=== PATIENT | male | born 1990 | race African-American/Black ===

== ENCOUNTER 2017-01-09 10:31 | Emergency (ER) | payer MEDICAID, OTHER ==
[~2017-01-09] VITALS: Ht 177.8 cm; Wt 100.0 kg
[~2017-01-09 10:31] MED LIST: BACL10TA PO; DICL75 PO
[2017-01-09 10:33] VITALS: BP 126/59; PULSE 52; RESP 15; TEMP 98.7; O2SAT 98
--- NOTE | 2017-01-09 11:17 | PD ---
HPI Chief Complaint: Dizziness Time Seen by Provider: 11:15 Travel History International Travel<30 days: No Contact w/Intl Traveler<30days: No Traveled to known affect area: No History of Present Illness HPI 26-year-old male percents emergency department for evaluation of nasal congestion, sore throat, cough 5 days. Patient reports multiple family members with URIs at home. He denies fever, chills, chest pain, nausea vomiting or diarrhea. Symptoms severity mild. No aggravating or alleviating factors. PFSH Past Medical History Medical History: Denies Significant Hx Diminished Hearing: No Immunizations Current: Yes Past Surgical History Surgical History: No Previous Surgery Social History Alcohol Use: No Tobacco Use: Yes (2 black and milds daily) Substance Use: No Allergies-Medications (Allergen,Severity, Reaction): Coded Allergies: Dust (Verified Allergy, Unknown, 04/01/16) Reported Meds & Prescriptions Reported Meds & Active Scripts Active No Active Prescriptions or Reported Medications Review of Systems Except as stated in HPI: all other systems reviewed are Neg General / Constitutional: No: Fever Eyes: No: Visual changes HENT: Positive: Sore Throat, Rhinitis, Congestion Cardiovascular: No: Chest Pain or Discomfort Respiratory: Positive: Cough Gastrointestinal: No: Abdominal Pain Genitourinary: No: Dysuria Physical Exam Narrative GENERAL: Well-nourished, well-developed patient. SKIN: Focused skin assessment warm/dry. HEAD: Normocephalic. EYES: No scleral icterus. No injection or drainage. NECK: Supple, trachea midline. No JVD or lymphadenopathy. CARDIOVASCULAR: Regular rate and rhythm without murmurs, gallops, or rubs. RESPIRATORY: Breath sounds equal bilaterally. No accessory muscle use. GASTROINTESTINAL: Abdomen soft, non-tender, nondistended. MUSCULOSKELETAL: No cyanosis, or edema. BACK: Nontender without obvious deformity. No CVA tenderness. Data Data Last Documented VS Vital Signs Date Time Temp Pulse Resp B/P Pulse Ox O2 Delivery O2 Flow Rate FiO2 01/09/17 10:33 98.7 52 15 126/59 98 MDM Medical Decision Making Medical Screen Exam Complete: Yes Emergency Medical Condition: Yes Differential Diagnosis URI, strep pharyngitis, bronchitis, pneumonia, influenza Narrative Course 26-year-old male with mild URI symptoms. Patient's physical exam is benign. Patient was instructed regarding symptomatically treatment of URI. He verbalizes understanding and agrees to plan. Diagnosis Primary Impression: URI (upper respiratory infection) Qualified Code: J06.9 - Upper respiratory tract infection, unspecified type Referrals: Primary Care Physician Departure Forms: Tests/Procedures, Work Release Enter return to work date: Jan 10, 2017 Scripts No Active Prescriptions or Reported Meds Disposition: 01 DISCHARGE HOME Condition: Stable Radha Jacobo Jan 09, 2017 11:17
== END 2017-01-09 11:36 | disposition home or self-care (01) ==
LOC: NEPD 10:31
DX: J06.9 Acute upper respiratory infection, unspecified (principal); Z72.0 Tobacco use
CPT/HCPCS: 99282